=== PATIENT | male | born 1950 | race Caucasian/White ===

== ENCOUNTER 2018-01-06 10:34 | Emergency (ER) | payer OTHER ==
[~2018-01-06] VITALS: Ht 188 cm; Wt 104.3 kg
[~2018-01-06 10:34] MED LIST: ALLERGY RELIEF10 M5 PO; ASPIR 8181 M1 PO; CENTRUM SILVER1 EAC4 PO; IMDUR 30 MG TAB30 M1 PO; LOPRESSOR25 PO; MOBIC15 MG PO; NEURONTIN 300300 M1 PO; NICOTINE TRANSD21 M1 TRANSDERM; NITROGLYCERIN0.4 MG SUBLING; PAXIL10 MG PO; PLAVIX 75 MG TA75 M1 PO; REMERON15 MG PO; SENNA8.6 M1 PO; Synthroid 0.088 MG PO; TRAZODONE HCL50 MG PO; TUMS PO; TYLENOL325 MG PO; ZETIA10 MG PO
[2018-01-06] MEDS ORDERED: ZPAK PO (12:11)
[2018-01-06] MEDS ORDERED: MEDROLDOSEPACK PO (12:11)
[2018-01-06] MEDS ORDERED: TRAZODONE HCL100 MG PO (12:11)
[2018-01-06] MEDS ORDERED: PROAIR HFA8.5 GM INH (12:11)
[2018-01-06 12:34] VITALS: BP 139/73
== END 2018-01-06 12:34 | disposition home or self-care (01) ==
LOC: M.ERS 10:34
DX: J01.90 Acute sinusitis, unspecified (principal); G62.9 Polyneuropathy, unspecified; E78.00 Pure hypercholesterolemia, unspecified; E03.9 Hypothyroidism, unspecified; F17.200 Nicotine dependence, unspecified, uncomplicated

== ENCOUNTER 2018-04-13 02:58 | Inpatient (IN) | payer OTHER ==
[2018-04-13] VITALS (14 sets, daily range): BP systolic 103–138; BP diastolic 64–83
[~2018-04-13] VITALS: Ht 188 cm; Wt 97.8 kg
[~2018-04-13 02:58] MED LIST changes: +MEDROLDOSEPACK PO; +PROAIR HFA8.5 GM INH; +TRAZODONE HCL100 MG PO; +ZPAK PO
[2018-04-13 03:23] LABS: ABSOLUTE BASOPHILS 0.1 thou/uL (0.0-0.2); ABSOLUTE EOSINOPHILS 0.3 thou/uL (0.0-0.7); ABSOLUTE LYMPHOCYTES 2.6 thou/uL (0.8-5.3); ABSOLUTE MONOCYTES 0.6 thou/uL (0.0-1.2); BASOPHILS 0.7 %; EOSINOPHILS 3.1 %; HEMATOCRIT 38.9 % (42.0-52.0); HEMOGLOBIN 13.1 gm/dL (14.0-18.0); MCH 32.1 pg (26.0-34.0); MCHC 33.7 g/dL (28.0-37.0); MCV 95.2 fL (80.0-100.0); MONOCYTES 6.3 %; MPV 8.5 fl. (7.2-11.1); NUCLEATED RBCS 0 /100WBC; PLATELET COUNT* 331 thou/uL (150-400); POLYS 62.9 %; RBC 4.09 mil/uL (4.50-6.00); RDW-CV 13.1 % (10.5-14.5); WBC 9.5 thou/uL (4.0-11.0)
[2018-04-13 03:30] LABS: ANION GAP 5 mmol/L (7-16); BUN 9 mg/dL (7-18); CALCIUM 8.2 mg/dL (8.5-10.1); CHLORIDE 103 mmol/L (98-107); CO2 31 mmol/L (21-32); CREATININE 0.8 mg/dL (0.6-1.3); GLUCOSE 116 mg/dL (70-99); POTASSIUM 4.1 mmol/L (3.5-5.1); SODIUM 139 mmol/L (136-145)
[2018-04-13 03:34] LABS: APTT 28.4 Seconds (25.0-31.3)
[2018-04-13 03:40] LABS: ALBUMIN 2.8 g/dL (3.4-5.0); ALKALINE PHOSPHATASE 117 U/L (46-116); LIPASE 165 U/L (73-393); NT-PRO BRAIN NAT PEPTIDE 271 pg/mL (<300); SGOT 12 U/L (15-37); SGPT 15 U/L (30-65); TOTAL BILIRUBIN 0.1 mg/dL (<0.1-1.0); TOTAL PROTEIN 6.7 g/dL (6.4-8.2); TROPONIN-I LEVEL <0.06 ng/mL (<0.06)
[2018-04-13] MEDS ORDERED: LASIX 20 MG TAB20 MG PO (03:42)
[2018-04-13] MEDS ORDERED: PAXIL10 MG PO (03:44)
[2018-04-13] MEDS ORDERED: PRAVACHOL40 MG PO (03:45)
[2018-04-13] MEDS ORDERED: MELATONIN3 MG PO (03:47)
--- NOTE | 2018-04-13 04:01 | NUR ---
ASSUMMED CARE OF PATIENT FROM AMANDA DUQUE
--- NOTE | 2018-04-13 04:05 | NUR ---
ASSUMMED CARE OF PATIENT. PATIENT REPORTS CHEST DISCOMFORT IN MIDDLE OF CHEST THAT RADIATED INTO HIS NECK BEGAN 30 M PRIOR TO EMS PICKING UP PATIENT. PATIENT TOOK 3 NITRO AND CHEST PAIN RESOLVED. DENIES N/V MILD DYSPNEA DENIES DIAPHORESIS. PATIENT REMAINS PAIN FREE AT THIS TIME. ASA GIVEN BY EMS SHOP COORDINATOR MONITOR SHOWS SINUS KAIDEN NO ECTOPY NOTED.
--- NOTE | 2018-04-13 04:23 | NUR ---
ADMISSION ORDER PLACED ANTIQUE FINISHER NOTIFIED PATIENT INFORMED
[2018-04-13 05:01] LABS: BE 0.4 mmol/L (-2 to +3); HCO3 26.2 mmol/L (22.0-26.0); PCO2 46.9 mmHg (35.0-45.0); PO2 85.7 mmHg (75.0-100.0); pH 7.365 (7.340-7.450)
--- NOTE | 2018-04-13 05:58 | NUR ---
ADMITTED TO ICU BED 1, TELE OBSERVATION OVERFLOW. CURRENT CHEST PAIN 3/10 WHICH PT STATES IS IMPROVED FROM ER. DENIES SOA. VSS. IVF INITIATED ORDERED. PT ORIENTED TO ROOM, CALL LIGHT USE, AND FALL PREVENTION. FALL AGREEMENT SIGNED. CALL LIGHT WITHIN REACH.
--- NOTE | 2018-04-13 08:00 | NUR ---
RECEIVED REPORT FROM MANAGER FORMS NURSE. PATIENT AXOX4, RESTING AT THIS TIME, ASSESSMENT CHARTED. ALL VITALS WNL. CARDIOLOGY TO SEE PATIENT THIS AM. NPO FOR POSSIBLE CATH. NO CHEST PAIN, NAUSEA OR SHORTNESS OF AIR AT THIS TIME. GOALS ARE TO HAVE NO CHEST PAIN, VITALS WNL AND INCREASE ACTIVITY WITHOUT SHORTNESS OF BREATH OR CHEST PAIN. BED IN LOWEST POSITION, CALL LIGHT IN REACH, SENIOR PHYSICAL THERAPIST IN PLACE. WILL CONTINUE TO MONITOR.
--- NOTE | 2018-04-13 09:30 | NUR ---
PATIENT IN WEB SITE DESIGNER FOR CARIDAC CATH AND POSSIBLE STENT PLACEMENT.
--- NOTE | 2018-04-13 12:48 | EKG ---
[place] [address] ELECTROCARDIOGRAM REPORT Name: MONSTER FAROOQ [address] [id number] Admission: 04/13/18 Attend Phys: Irma Abraham MD Discharge: Date of : 52 Report #: [id number] THIS REPORT FOR: //name// 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1950 Requested By: Evelyne Moreno Order Number: [id number] MD: Jack Bullock Measurements Intervals [place] Rate: 57 P: 49 [place]: 178 QRS: 14 QRSD: 89 T: 47 QT: 446 QTc: 435 Interpretive Statements Sinus bradycardia nonspecific t wave changes Low voltage, extremity leads Compared to ECG 04/26/2015 09:18:37 Low QRS voltage now present st changes noted Electronically Signed On 04-13-2018 12:48:45 CDT by Jack Bullock [email or web address] <ELECTRONICALLY SIGNED> By: Jack Bullock MD, [facility] 04/13/18 1248 030 0302 Jack Bullock MD, [facility] /EPI
--- NOTE | 2018-04-13 13:00 | NUR ---
PATIENT BACK FROM CATH. 2 STENTS PLACED. PATIENT NOW ICU STATUS WITH SHEATH IN PLACE. DR DAN TO SEE PATIENT AROUND 1400. SHEATH TO REMAIN IN TILL 1400 AND THEN BED REST WITH RIGHT LEG STAIGHT FOR SIX HOURS POST SHEATH REMOVAL.
--- NOTE | 2018-04-13 14:08 | CON ---
[address] [address] CONSULTATION Name: MONSTER FAROOQ Room: [address] Matthew Toth#: [id number] Admission: 04/13/18 Attend Phys: Irma Abraham MD Discharge: Date of : 52 Report #: [id number] THIS REPORT FOR: //name// CC: KELECHI physician/PCP Irma Abraham DATE OF SERVICE: 04/13/2018 HISTORY OF PRESENT ILLNESS: The patient is a 68-year-old single white male who I was asked to see in the hospital today after he complained of chest pain. The patient has an extensive past medical history. Unfortunately, not all of his old records are available here at [place]. According to the patient, he had his first stent placed almost 17 years ago at [facility]. He had 2 stents placed at [facility] approximately 10 years ago. He was actually admitted here to [place] [address] segment elevation myocardial infarction. He was seen by my partner, Dr. Shah. He underwent a cardiac catheterization by Dr. Shah. The results showed LAD had a distal 80% stenosis. The diagonal branch was acutely occluded. The circumflex had a small intermediate ramus branch with an 80% ostial stenosis. The right coronary artery had a stent that is widely patent. The posterior descending branch appeared to have a 90% stenosis. The patient then underwent acute angioplasty, had a single bare metal stent placed. He was loaded with Plavix and discharged. The patient states he has done well since that time until the past couple of weeks. He has been having intermittent chest pressure. He awakened at 3:00 in the morning with a tightness in his chest, went into his throat, he became diaphoretic. He took 3 nitroglycerin and that seemed to help. He called the ambulance and brought here to [place]. I was asked to see him for further evaluation and treatment. He is not very active, but does note some exertional dyspnea. He has had no palpitations or syncope. PAST MEDICAL HISTORY: He has a history of a pituitary tumor. He has had 2 brain surgeries, one at [facility] and one in [place], one was transsphenoidal, the other was went through his upper lip. He has a history of seizures, hyperlipidemia, and depression. No history of hypertension or diabetes. CURRENT MEDICATIONS: Consists of Flonase, Lasix, Neurontin, Isordil, Synthroid, metoprolol, aspirin, Paxil, Dilantin, pravastatin, trazodone, albuterol inhaler, and aspirin. ALLERGIES: He has no known drug allergies. FAMILY HISTORY: Positive for heart disease. SOCIAL HISTORY: He is , lives in [place] with daughter. He is on disability secondary to previous brain surgery. 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 He smokes half pack of cigarettes a day[place] [address] CONSULTATION Name: MONSTER FAROOQ Room: [address] Matthew Toth#: [id number] Admission: 04/13/18 Attend Phys: Irma Abraham MD Discharge: Date of : 52 Report #: [id number] REVIEW OF SYSTEMS: He has sleep apnea, uses CPAP. No history of stroke. He does have COPD, uses inhaler. He has a chronic cough. No history of peptic ulcer disease, liver disease, kidney disease, or cancer. He does have a history of depression, sees a psychiatrist. No chronic skin condition. PHYSICAL EXAMINATION: GENERAL: Revealed a middle-aged male, who appeared in no acute distress. VITAL SIGNS: He had a blood pressure of 120/70, pulse 60. He was afebrile. HEENT: He was anicteric. Conjunctivae are pink. Mucous membranes are moist. NECK: Veins nondistended. No carotid bruits. CHEST: Revealed bilateral expiratory wheezes. HEART: Regular rate and rhythm, no murmur. ABDOMEN: Soft. EXTREMITIES: Had no edema. Dorsalis pedis pulse cannot be palpated. SKIN: Cool and dry. NEUROLOGIC: Nonfocal. LYMPH: No adenopathy. MUSCULOSKELETAL: No joint effusions. PSYCHIATRIC: Mood appeared somewhat depressed. His ECG showed a sinus rhythm with minimal ST segment depression in lead V2, V3, V4. His workup so far, he had portable chest x-ray that showed normal heart size, clear lung diaz. His lab work, sodium 139, BUN 9, creatinine 0.8. Liver function studies are normal. Troponin 0.06. Previous cholesterol is 241, triglyceride 296, HDL 35, LDL 147 in 2015, TSH is 0.722. White blood cell count 9.5, hemoglobin 13.1. IMPRESSION AND RECOMMENDATIONS: 1. Unstable angina. Recommend cardiac catheterization. 2. Hyperlipidemia. The patient is on a statin drug. 3. Tobacco abuse. 4. Chronic bronchitis. 5. Pituitary insufficiency following surgery. The patient is on hormone replacement therapy. 6. History of depression. 7. Sleep apnea. <ELECTRONICALLY SIGNED> By: Jack Bullock MD, [facility] 04/13/18 1408 0859 [id number] Pratima Bullock MD, FACC /nt
--- NOTE | 2018-04-13 14:27 | EKG ---
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1950 Requested By: Jack Bullock Order Number: [id number] Tarsha MD: Jack Bullock Measurements Intervals [place] Rate: 57 P: 56 [place]: 159 QRS: 19 QRSD: 99 T: 85 QT: 437 QTc: 426 Interpretive Statements Sinus bradycardia Inferior infarct, acute (RCA) Probable RV involvement, suggest recording right precordial leads Baseline wander in lead(s) II,III,aVF Compared to ECG 04/13/2018 03:02:21 Myocardial infarct finding now present Electronically Signed On 04-13-2018 14:27:36 CDT by Jack Bullock [email or web address] <ELECTRONICALLY SIGNED> By: Jack Bullock MD, [facility] 04/13/18 1427 1333 1333 Jack Bullock MD, [facility] /EPI
--- NOTE | 2018-04-13 14:59 | CARD ---
[address] [address] CARDIAC CATH REPORT Name: MONSTER FAROOQ Room: [address] Matthew Toth#: [id number] Admission: 04/13/18 Attend Phys: Irma Abraham MD Discharge: Date of : 52 Report #: [id number] THIS REPORT FOR: //name// APPROVED REPORT Study performed: 04/13/2018 09:20:26 Patient Details Patient Status: In-Patient Room #: ICU1 The patient is a 68 year-old male Event Personnel Jack Bullock Caustic Operator, Morena Sharp RN RN, Milka Thomas RN Monitor, Harjit Sesay (R) Kay Funk Jessica RTRojas Monitor Procedures Performed Art Access - R femoral artery* , PTCA with StentingLeft Heart Cath w/or w/o Coronaries LHC STEPHEN Place w/wo Plasty Addl BR PDA C DESADDL STEPHEN Place w/wo Plasty Single RCA Indication Abnormal ECG, Unstable angina , Chest pain Risk Factors Arterial Hypertension, Hypercholesterolemia, Coronary Artery Disease Previous Procedures/Diagnoses Previous PCI, Previous [place] Admission/Lab Medications/Medications given during procedure Glycoprotein IllbIlla Inhibitors, Platelet Aff. Inhib., Heparin Unfract. Procedure Narrative The patient was brought electively to the Cardiac Catheterization Laboratory and was prepped and aped in a sterile manner. The right femoral was infiltrated with 2% Lidocaine subcutaneous anesthesia. A 6fr Ultimum Sheath sheath was inserted into the right femoral artery. Coronary angiography was performed using coronary diagnostic catheters. The right coronary system was accessed and visualized with a 6JR 4 catheter. The left coronary system was accessed and visualized with a 6JL 4 catheter. The left [place] [address] CARDIAC CATH REPORT Name: MONSTER FAROOQ Room: [address]#: [id number] Admission: 04/13/18 Attend Phys: Irma Abraham MD Discharge: Date of : 52 Report #: [id number] visualized with a ANGLED PIGTAIL catheter. Left ventricular/Aortic Valve gradient assessed via catheter pullback. Left ventriculogram was performed in BASSETT projection. The patient tolerated the procedure well and there were no complications associated with the procedure. There was no hematoma. 6FR FEMORAL SHEATH SUTURED IN PLACE AND CONNECTED TO PRESSURE BAG FOR ARTERIAL LINE MONITORING. PAD required wire exchanges. Larry's test was abnormal so the radial artery was not used Intraoperative Conscious Sedation Sedation start time: 10:21 Case end Time: 11:49 Fentanyl 100 mcg Fluoro Time: 17.9 minutes Dose: DAP 121403 cGycm2 2807.03 mGy Contrast Type and Amount: Omnipaque 450 ml Diagnostic Cath Left Main 0% stenosis LAD 30% proximal and 60% mid stenosis Diagonal 1 stent had 0% stenosis Circumflex 0% stenosis Right Coronary long stent that started proximally and extended to mid rca and had diffuse restenosis with discrete mid 90% stenosis R PDA 90% mid stenosis noted Left Ventriculography The left ventricular ejection fraction is estimated to be 40-45%. Left ventricular wall motion abnormalities are present. There is no mitral insufficiency. severe hypokinesis noted of the distal anterolateral wall Hemodynamics The aortic pressure is 119/65 mmHg with a mean of 85 mmHg. The left ventricular pressure is 122/6 mmHg with a mean of mmHg. The left ventricular end diastolic pressure is 21 mmHg. There was no gradient across the aortic valve upon pullback. Pullback from the left ventricle to the aorta revealed no gradient across the aortic valve. PCI Technique Lesion Anticoagulation was achieved with Heparin. IV aggrastat bolus given Patient was preloaded with Plavix. Percutaneous coronary intervention was performed on the proximal right coronary artery. The lesion stenosis prior to intervention was 90% with CARROL [address] [place] [address] CARDIAC CATH REPORT Name: MONSTER FAROOQ Room: [address]#: [id number] Admission: 04/13/18 Attend Phys: Irma Abraham MD Discharge: Date of : 52 Report #: [id number] JR 4 6FR Guide Catheter was used to engage the RIGHT CORONARY ostium. A Whisper Wire 190CM Interventional Guidewire was used to cross the lesion. BALLOON DILATION A Balloon catheter Mini Trek RX 2.0 X 8 was inserted and inflated up to 18.00atm for 10seconds. Repeat angiography revealed the following post-dilatation results: 60% stenosis. Additional Inflation: 18.00atm for 9seconds. STENT DEPLOYMENT A drug-eluting stent Xience Alpine RX 3.0X33 was inserted and inflated up to 16.00atm for 19seconds. Repeat angiography revealed the following post-stent deployment results: 0% stenosis. Additional Inflation: 20.00atm for 14seconds. Final angiography reveals 0 % stenosis with CARROL 3 flow. COMMENTS Nirav wire required to advance stent into rca PCI Technique Lesion 2 Percutaneous Coronary Intervention was performed on the right posterior descending artery. Patient was preloaded with Plavix. Percutaneous coronary intervention was performed on the right posterior descending artery. The lesion stenosis prior to intervention was 90% with CARROL 3 flow. A Launcher JR 4 6FR Guide Catheter was used to engage the rca ostium. A Whisper Wire 190CM Interventional Guidewire was used to cross the lesion. Balloon Dilation A Balloon catheter Mini Trek RX 2.0 X 8 was inserted and inflated up to 10.00atm for 16seconds. Repeat angiography revealed the following post-dilatation results: distal vessel occluded. Additional Inflation: 12.00atm for 14seconds. Stent Deployment A drug-eluting stent Xience Alpine RX 2.25X12 was inserted and inflated up to 12.00atm for 14seconds. Repeat angiography revealed the following post-stent deployment results: distal vessel occluded. Additional Inflation: 14.00atm for 19seconds. Final angiography reveals 100 % stenosis with CARROL [address] [address] CARDIAC CATH REPORT Name: MONSTER FAROOQ Room: [address] Matthew M.R.#: [id number] Admission: 04/13/18 Attend Phys: Irma Abraham MD Discharge: Date of : 52 Report #: [id number] Comments Unable to easily wire the distal PDA branch. Distal vessel beyond stent noted to be occluded. Initial final picture demonstrated a perforation with contrast noted to flow into the left ventricle. The patient had minimal complaints at that time, and the heparin was reversed with 50 mg protamine. There was no decrease in blood pressure during the procedure. Final arteriogram showed no evidence of residual perforation. Conclusion 1. no restenosis noted of the stent in the diagonal branch of the LAD 2. 90% restenosis noted of the stent in the proximal RCA 3. 90% stenosis noted of the PDA branch of the RCA 4. successful placement of a drug eluting stent in the proximal RCA 5. placement of a drug eluting stent in the PDA branch of the distal RCA, although the vessel beyond the stent occluded Recommendations Smoking Cessation Cardiac Rehabilitation Referral Aggressive Medical Therapy Medications Administered Clopidogrel <ELECTRONICALLY SIGNED> By: Jack Bullock MD, [facility] 04/13/18 1459 1459 1459Dajulia Bullock MD, FACC /INF
--- NOTE | 2018-04-13 18:06 | NUR ---
PATIENT PROGRESSING WELL TOWARDS GOALS. 2 STENTS PLACED DURING HEART CATH TODAY. SHEATH REMOVED SUCCESSFULLY WITH MINIMAL BLEEDING. VITALS REMAIN WNL. PATIENT CAN BE OFF BEDREST AT 2000 TONIGHT AND TERRY MAY BE D/C AT THAT TIME. FAMILY HAS BEEN HERE TO VISIT THIS EVENING. PATIENT TOLERATING HEART HEALTHY DIET FOR DINNER. SHOULD BE ABLE TO D/C HOME TOMORROW. ALL QUESTION ANSWERED. DENIES ANY PAIN, NAUSEA OR SHORTNESS OF AIR. BED IN LOWEST POSTION, CALL LIGHT IN REACH, RN ANTE PARTUM IN PLACE. WILL CONTINUE TO MONITOR.
--- NOTE | 2018-04-13 19:58 | NUR ---
ASSUMED CARE OF PT FROM DAY ARTURO HERNANDEZ. PT A+O*4, WAS ON 2L O2 VIA NC, NOW RA, SAT 94%, DENIES ANY CP. PT IS S/P SHEATH REMOVAL AT 1400, RLE HAS REMAINED STRAIGHT, R GROIN SITE SOFT AND SUPPLE, NO HEMATOMA, NO BLEEDING AT SITE. TERRY TO BE D/C'D. DR DAN CALLED FOR DILANTIN ORDER PER PT REQUEST, 400MG AT HS.
[2018-04-13] MEDS ORDERED: DILANTIN50 MG PO (20:18)
[2018-04-14] VITALS (16 sets, daily range): BP systolic 104–125; BP diastolic 30–80
[2018-04-14 03:24] LABS: HEMATOCRIT 37.3 % (42.0-52.0); HEMOGLOBIN 12.6 gm/dL (14.0-18.0); MCH 31.7 pg (26.0-34.0); MCHC 33.6 g/dL (28.0-37.0); MCV 94.4 fL (80.0-100.0); MPV 8.7 fl. (7.2-11.1); RBC 3.96 mil/uL (4.50-6.00); RDW-CV 13.2 % (10.5-14.5); WBC 12.2 thou/uL (4.0-11.0)
[2018-04-14 03:43] LABS: CHOLESTEROL 222 mg/dL (<200); HDL CHOLESTEROL 34 mg/dL (>40); TC:HDL 6.5 Ratio (Not establshd)
[2018-04-14 04:35] LABS: LDL CHOLESTEROL 153 mg/dL (<100); TRIGLYCERIDE 175 mg/dL (<150); VLDL 35 mg/dL (<40)
[2018-04-14 04:42] LABS: SERUM ASSESSMENT CLEAR; TROPONIN-I LEVEL 12.31 ng/mL (<0.06)
--- NOTE | 2018-04-14 09:50 | NUR ---
0730 ASSUMED CARE OF PATIENT. PLEASE SEE DOCUMENTED ASSESSMENT AND GROIN SITE CHARTING. PT DENIES CHEST PAIN.
--- NOTE | 2018-04-14 09:51 | NUR ---
VENOUS DOPPLERS DONE. PATIENT IS NOW TELE STATUS
--- NOTE | 2018-04-14 10:25 | NUR ---
INTERDISCIPLINARY ROUNDS: MET WITH PT. IS S/P NSTEMI AND CATH. HE HOPES TO MOVE TO THE FLOOR FROM ICU TODAY SO HE CAN 'REST.' PT LIVES WITH DTR WHO IS ALSO DISABLED. THEY ARE BOTH FAIRLY INDEPENDENT. PT USES CPAP. [facility]. PT DENIES ANY DC NEEDS AT THIS TIME. DTR CAN ASSIST WITH NEEDS AT HOME AND TRANSPORATION. CM TO FOLLOW
--- NOTE | 2018-04-14 11:08 | EKG ---
[place] [address] ELECTROCARDIOGRAM REPORT Name: MONSTER FAROOQ Room: [address] ADM IN M.R.#: [id number] Admission: 04/14/18 Attend Phys: Saranya Haines Discharge: Date of : 52 Report #: [id number] THIS REPORT FOR: //name// 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1950 Requested By: Jack Bullock Order Number: [id number] Reading MD: Steve Alcocer Measurements Intervals [place] Rate: 67 P: 56 ND: 172 QRS: -16 QRSD: 103 T: 50 QT: 407 QTc: 430 Interpretive Statements Sinus rhythm Consider left atrial enlargement Borderline left axis deviation Low voltage, extremity leads Abnormal R-wave progression, early transition Baseline wander in lead(s) II,III,aVF Compared to ECG 04/13/2018 13:33:20 Low QRS voltage now present Sinus bradycardia no longer present Myocardial infarct finding no longer present Electronically Signed On 04-14-2018 11:08:10 CDT by Steve Alcocer [email or web address] <ELECTRONICALLY SIGNED> By: Steve Alcocer MD, [facility] 04/14/18 1108 8 8 Steve Alcocer MD, [facility] /EPI
--- NOTE | 2018-04-14 14:01 | NUR ---
CARDIAC REHAB TO WORK WITH PATIENT.
--- NOTE | 2018-04-14 15:26 | NUR ---
TRANSFERRED PER WHEELCHAIR TO Replaced by [facility] WITH ALL RECORDS AND BELONGINGS. REPORT TO ARTURO CLINE
--- NOTE | 2018-04-14 15:30 | NUR ---
ICU TX TO RM 229 PATIENT ORIENTED TO CALL LIGHT AND RM DENIES PAIN
[2018-04-15] VITALS: BP 114/73
--- NOTE | 2018-04-15 03:16 | NUR ---
PATIENT RESTED IN BED, NO ACUTE CHANGES. PATIENT DID NOT SHOW SIGNS OF DISTRESS. FALL PRECAUTIONS IN PLACE, CALL LIGHT WITH IN REACH.
[2018-04-15 04:00] VITALS: BP 112/55
--- NOTE | 2018-04-15 07:20 | NUR ---
CHANGE OF SHIFT BEDSIDE REPORT GIVEN PATIENT SEEN IN ROOM UP SITTING IN CHAIR ASSUMED PATIENT CARE
[2018-04-15 12:06] VITALS: BP 115/62
[2018-04-15] MEDS ORDERED: TOPROL XL25 MG PO (14:04)
[2018-04-15] MEDS ORDERED: PLAVIX 75 MG TA75 M1 PO (14:12)
--- NOTE | 2018-04-15 15:00 | NUR ---
PATIENT DCD TO HOME ALL DC INSTRUCTIONS INFORMED, ACKNOWLEDGED, AND SIGNED COPIES GIVEN IV AND HEART MONITOR REMOVED PERSONAL BELONGINGS RETURNED ASSISTED OUT VIA WC GOOD CONDITION TO WAITING CAR
== END 2018-04-15 14:55 | disposition home or self-care (01) | DRG 246 ==
LOC: M.ERS 02:58 → M.TBA-ER 04:19 → M.ICU 04:19 → M.2W 04-14 08:18
PROVIDERS: Internal Medicine Cardiovascular Disease; Personal Emergency Response Attendant; ADMIT Internal Medicine
PROC: 027035Z Dilation of Coronary Artery, One Artery with Two Drug-eluting Intraluminal Devices, Percutaneous Approach (ICD-10-PCS; principal; 2018-04-13)
PROC: 4A023N7 Measurement of Cardiac Sampling and Pressure, Left Heart, Percutaneous Approach (ICD-10-PCS; principal; 2018-04-13)
PROC: B2151ZZ Fluoroscopy of Left Heart using Low Osmolar Contrast (ICD-10-PCS; principal; 2018-04-13)
PROC: B2111ZZ Fluoroscopy of Multiple Coronary Arteries using Low Osmolar Contrast (ICD-10-PCS; principal; 2018-04-13)
DX: T82.855A Stenosis of coronary artery stent, initial encounter (principal); I21.4 Non-ST elevation (NSTEMI) myocardial infarction; E23.0 Hypopituitarism; I25.110 Atherosclerotic heart disease of native coronary artery with unstable angina pectoris; E78.5 Hyperlipidemia, unspecified; E78.00 Pure hypercholesterolemia, unspecified; F32.9 Major depressive disorder, single episode, unspecified; I25.2 Old myocardial infarction; R56.9 Unspecified convulsions; E03.9 Hypothyroidism, unspecified; F17.210 Nicotine dependence, cigarettes, uncomplicated; G47.30 Sleep apnea, unspecified; G62.9 Polyneuropathy, unspecified; J44.9 Chronic obstructive pulmonary disease, unspecified; K63.5 Polyp of colon; Y83.8 Other surgical procedures as the cause of abnormal reaction of the patient, or of later complication, without mention of misadventure at the time of the procedure; Y92.89 Other specified places as the place of occurrence of the external cause; Z79.82 Long term (current) use of aspirin; Z95.5 Presence of coronary angioplasty implant and graft; Z79.899 Other long term (current) drug therapy; Z82.49 Family history of ischemic heart disease and other diseases of the circulatory system

== ENCOUNTER 2018-04-19 02:29 | Inpatient (IN) | payer OTHER ==
[~2018-04-19] VITALS: Ht 188 cm; Wt 101.2 kg
[2018-04-19] VITALS (17 sets, daily range): BP systolic 99–122; BP diastolic 56–74
--- NOTE | ~2018-04-19 | EKG ---
[place] [address] ELECTROCARDIOGRAM REPORT Name: MONSTER FAROOQ Room: [address] ADM IN .R.#: [id number] Admission: 04/19/18 Attend Phys: Jack Bullock MD, F Discharge: Date of : 51 Report #: [id number] THIS REPORT FOR: //name// 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: [facility] : 1950 Requested By: Prasanna Nath Order Number: [id number] MD: Measurements Intervals [place] Rate: 61 P: 52 [place]: 158 QRS: -33 QRSD: 102 T: 84 QT: 396 QTc: 399 Interpretive Statements Sinus rhythm Multiform ventricular premature complexes Inferior infarct, acute (RCA) Probable RV involvement, suggest recording right precordial leads Baseline wander in lead(s) II,III,aVF Compared to ECG 04/14/2018 08:19:03 Ventricular premature complex(es) now present Myocardial infarct finding now present [email or web address] By: 8 8 Epiphany Epiphany, /TY
[~2018-04-19 02:29] MED LIST changes: +DILANTIN50 MG PO; +LASIX 20 MG TAB20 MG PO; +MELATONIN3 MG PO; +PRAVACHOL40 MG PO; +TOPROL XL25 MG PO
[2018-04-19 02:52] LABS: ABSOLUTE BASOPHILS 0.2 thou/uL (0.0-0.2); ABSOLUTE EOSINOPHILS 0.2 thou/uL (0.0-0.7); ABSOLUTE LYMPHOCYTES 2.4 thou/uL (0.8-5.3); ABSOLUTE MONOCYTES 1.1 thou/uL (0.0-1.2); ABSOLUTE NEUTROPHILS 8.1 thou/uL (1.6-8.1); BASOPHILS 1.4 %; HEMATOCRIT 37.1 % (42.0-52.0); HEMOGLOBIN 12.5 gm/dL (14.0-18.0); LYMPHOCYTES 19.8 %; MCH 32.2 pg (26.0-34.0); MCHC 33.6 g/dL (28.0-37.0); MCV 95.9 fL (80.0-100.0); MONOCYTES 9.4 %; MPV 8.8 fl. (7.2-11.1); NUCLEATED RBCS 0 /100WBC; PLATELET COUNT* 380 thou/uL (150-400); POLYS 67.4 %; RBC 3.87 mil/uL (4.50-6.00); RDW-CV 12.5 % (10.5-14.5)
[2018-04-19 03:05] LABS: APTT 28.3 Seconds (25.0-31.3); CREATININE 0.7 mg/dL (0.6-1.3); POTASSIUM 3.7 mmol/L (3.5-5.1); PROTIME 10.1 Seconds (9.20-11.50)
[2018-04-19] MEDS ORDERED: FLONASE 0.05%50 MCG NASAL (03:14)
[2018-04-19] MEDS ORDERED: HYDROXYZINE HCL10 M1 PO (03:15)
[2018-04-19] MEDS ORDERED: IMDUR 30 MG TAB30 M1 PO (03:16)
[2018-04-19 03:24] LABS: ALBUMIN 2.7 g/dL (3.4-5.0); CK-MB MASS 1.3 ng/mL (<0.5-3.6); MAGNESIUM 1.9 mg/dL (1.8-2.4); TOTAL BILIRUBIN 0.2 mg/dL (<0.1-1.0); TOTAL PROTEIN 6.7 g/dL (6.4-8.2)
[2018-04-19 03:31] LABS: TROPONIN-I LEVEL 1.81 ng/mL (<0.06)
[2018-04-19 05:13] LABS: CHOLESTEROL 180 mg/dL (<200); HDL CHOLESTEROL 33 mg/dL (>40); LDL CHOLESTEROL 115 mg/dL (<100); TC:HDL 5.5 Ratio (Not establshd); TRIGLYCERIDE 163 mg/dL (<150); VLDL 33 mg/dL (<40)
[2018-04-19 05:17] LABS: SERUM ASSESSMENT Clear
--- NOTE | 2018-04-19 13:06 | CARD ---
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 Procedure Narrative The patient was brought emergently to the Cardiac Catheterization Laboratory and was prepped and draped in a sterile manner. The left femoral was infiltrated with 2% Lidocaine subcutaneous anesthesia. A 6 fr sheath was inserted into the left femoral artery. Coronary angiography was performed using coronary diagnostic catheters. The right coronary system was accessed and visualized with a 6 fr jr4 guide catheter. The left coronary system was accessed and visualized with a Diagnostic catheter. Left ventricular/Aortic Valve gradient assessed via catheter pullback. [place] [address] CARDIAC CATH REPORT Name: MONSTER FAROOQ Room: [address]#: [id number] Admission: 04/19/18 Attend Phys: Jack Bullock MD, F Discharge: Date of : 52 Report #: [id number] well and there were no complications associated with the procedure. There was no hematoma. Sheath suture in place at end of procedure Intraoperative Conscious Sedation no sedation given Fluoro Time: 10.7 minutes Dose: 1574 mGy Contrast Type and Amount: Visipaque 230 ml Coronary Angiography The patient's coronary anatomy is right dominant. Diagnostic Cath Left Main 0% stenosis LAD 40% ostial stenosis and 70% distal stenosis Diagonal 1 stent with 0% stenosis Circumflex 0% stenosis Right Coronary long stent that was acutely occluded at its proximal end R PDA stent that appeared chronicall occluded RPLV 60% mid stenosis Left Ventriculography Left Ventriculography was not performed. IVUS Anticoagulation was achieved with . Heparin Hemodynamics The aortic pressure is 101/61 mmHg with a mean of 78 mmHg. The left ventricular pressure is 113/8 mmHg with a mean of mmHg. The left ventricular end diastolic pressure is 20 mmHg. There was no gradient across the aortic valve upon pullback. Pullback from the left ventricle to the aorta revealed no gradient across the aortic valve. PCI Technique Lesion Anticoagulation was achieved with Heparin. iv aggrastat given Percutaneous coronary intervention was performed on the proximal right coronary artery. The lesion stenosis prior to intervention was 100% with CARROL 0 flow. A 6F JR 4.0 Guide Catheter was used to engage the rca ostium. A [facility] Interventional Guidewire was [place] [address] CARDIAC CATH REPORT Name: MONSTER FAROOQ Room: [address] IN [facility]#: [id number] Admission: 04/19/18 Attend Phys: Jack Bullock MD, F Discharge: Date of : 52 Report #: [id number] BALLOON DILATION A Balloon catheter Trek RX 2.5 X 12 was inserted and inflated up to 20.00atm for 11seconds. Repeat angiography revealed the following post-dilatation results: 70% stenosis with clot and possible dissection. STENT DEPLOYMENT A drug-eluting stent 3.5 x 33 mm Xience Alpine RX 3.5X12 was inserted and inflated up to 20atm for 23seconds. Repeat angiography revealed the following post-stent deployment results: possible dissection distal to stent. Additional Inflation: 18.00atm for 29seconds. Additional Inflation: 18.00atm for 12seconds. 2nd BMW kriss wire required to advance stent to area of stenosis because of length of stent and tortuosity. Arteriogram showed possible dissction in distal portion of old stent, and at acute margin of vessel. Second stent which was 3.5 x 15 mm drug eluting stent placed so that there was minimal overlap between second stent and more proximal first stent. Arteriogram showed residual stenosis just beyond second stent. 3rd drug eluting stent which was a 3.5 x 12 mm drug eluting stent placed just beyond second stent. 3.5 mm stent balloon used to dilate the entire length of stented segment at end of procedure. Final angiography reveals 0 % stenosis with CARROL 3 flow. PCI Technique Lesion Anticoagulation was achieved with Heparin. STENT DEPLOYMENT A drug-eluting stent Xience Alpine RX 3.5X33 was inserted and inflated up to 16atm for 20seconds. Additional Inflation: 20atm for 8seconds. Additional Inflation: 20atm for 11seconds. additional Inflation: 20 megha for 10 sec. PCI Technique Lesion 2 Percutaneous Coronary Intervention was performed on the mid right coronary artery. Conclusion 1. acute occlusion of a stent in the proximal rca 2. chronic occlusion of a stent in the posterior descending branch of the rca 3. successful placement of 3 drug eluting stents in the proximal and mid rca 4. possible subacute stent thrombosis secondary to use of [place] [address] CARDIAC CATH REPORT Name: MONSTER FAROOQ Room: [address] IN [facility]#: [id number] Admission: 04/19/18 Attend Phys: Jack Bullock MD, F Discharge: Date of : 52 Report #: [id number] Recommendations Smoking Cessation Cardiac Rehabilitation Referral Aggressive Medical Therapy Medications Administered Ticagrelor <ELECTRONICALLY SIGNED> By: Jack Bullock MD, FACC 04/19/18 1306 1306 1306Dajulia Bullock MD, FAC /INF
--- NOTE | 2018-04-19 20:27 | H ---
[address] [address] HISTORY AND PHYSICAL Name: MONSTER FAROOQ Oniel Room: [address] IN .R.#: [id number] Admission: 04/19/18 Attend Phys: Jack Bullock MD, F Discharge: Date of : 51 Report #: [id number] THIS REPORT FOR: //name// CC: Jack Bullock [facility] physician/PCP DATE OF SERVICE: 04/19/2018 HISTORY OF PRESENT ILLNESS: The patient is a 68-year-old single white male who came to the Emergency Room, complaining of chest pain. The patient had a coronary stent placed almost 17 years ago at [facility]. He had 2 stents placed at [place] approximately 10 years ago. He was actually admitted to [place] in [address] segment elevation myocardial infarction. Heart catheterization showed 80% stenosis of the distal LAD. The diagonal artery was acutely occluded. The circumflex had a small ramus intermediate branch with an 80% ostial stenosis. The right coronary stent was widely patent. The posterior descending branch had a 90% stenosis. He underwent acute angioplasty and a single bare metal stent placed in the diagonal artery. He was loaded with Plavix and discharged. He then did well until about a month ago. He began to have intermittent chest pressure. He awakened at 3:00 in the morning with a tightness in his chest and in his throat, became diaphoretic. He took 3 nitroglycerins that seemed to help. He called EMS, was brought to [place]. I saw him in consultation and felt he was having unstable angina. I performed repeat cardiac catheterization from the right femoral artery after he failed his Larry's test. Results showed severe hypokinesis distal anterolateral wall with an ejection fraction of 40%-45%. The LAD had a 60% mid stenosis. The diagonal stent had no restenosis. There appeared to be no significant disease in the circumflex. The right coronary artery had a long stent that started proximally, stented to the mid right coronary artery with diffuse restenosis and a discrete 90% stenosis in the posterior descending branch. I then attempted angioplasty with heparin and Aggrastat. There was difficulty wiring the posterior descending branch. I did place a long drug-eluting stent in the right coronary artery with no significant residual stenosis. It did require kriss wire. I then attempted stenting the posterior descending branch. I was able to place a stent there; however, on contrast injection, there appeared to be contrast going into the left ventricle consistent with a perforation. Fortunately, he tolerated this well. The heparin was reversed with protamine and repeat angiogram showed the stent in the proximal right coronary artery was patent, although the posterior descending branch was occluded. The patient was transferred to the intensive care unit and the sheath was removed later that day. He did have elevation of troponin. However, he had no further chest pain, shortness of breath or arrhythmias. Additional workup during that hospitalization included a lower extremity Doppler study that showed no significant arterial occlusive disease. He was discharged, actually did well after his discharge, taking Plavix 75 mg a day. However, on the evening of admission, about 1:30 in the morning, he began to have chest [place]. [place] [address] HISTORY AND PHYSICAL Name: MONSTER FAROOQ Room: [address] IN M.R.#: [id number] Admission: 04/19/18 Attend Phys: Jack Bullock MD, F Discharge: Date of : 51 Report #: [id number] his blood sugar was low and he thought he had a hypoglycemic episode. However, the pain went to his arm, he became short of breath, nausea, diaphoretic. EMS was called. He was brought here to [place]. He was found to have evidence of inferior STEMI and a code STEMI was activated. He denied any bleeding or fever since his discharge. PAST MEDICAL HISTORY: Significant for removal of a pituitary tumor. He has a history of seizures, hyperlipidemia, depression. No history of hypertension. He does have glucose intolerance. MEDICATIONS: Include Flonase, Neurontin, Synthroid, metoprolol, aspirin, Paxil, Dilantin, pravastatin, trazodone, albuterol inhaler, aspirin and Plavix. ALLERGIES: No known drug allergies. FAMILY HISTORY: Positive for heart disease. SOCIAL HISTORY: He is , lives in [place] with his daughter. He is on disability due to previous brain surgery. 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 He was smoking half pack of cigarettes a day. No alcohol abuse. REVIEW OF SYSTEMS: He has sleep apnea, uses CPAP. No history of stroke. He does have COPD. He has a chronic cough. No history of peptic ulcer disease, liver disease, kidney disease or cancer. He has a history of depression, sees a psychiatrist. No chronic skin condition. PHYSICAL EXAMINATION: GENERAL: Revealed a middle-aged male, in mild distress. VITAL SIGNS: His blood pressure was 110/60, pulse is 70, he was afebrile. HEENT: He is anicteric. Conjunctivae pink. Mucous membranes moist. NECK: Veins nondistended. No carotid bruits. CHEST: Expiratory wheezes. HEART: Regular rate and rhythm. ABDOMEN: Soft. EXTREMITIES: Had no edema. Dorsalis pedis pulse cannot be palpated. SKIN: Cool and dry. NEUROLOGIC: Nonfocal. DIAGNOSTIC DATA: ECG, sinus rhythm; ST segment elevation in II, III, aVF; reciprocal ST segment depression V2, V3. His workup in the Emergency Room, he did have a chest x-ray that was pending. LABORATORY DATA: Sodium 138, BUN 8, creatinine 0.7, glucose is 130. His liver function studies were normal. Troponin 1.81 which is down from 12 at the time of his discharge, a week ago. His white blood cell count was 12.0, hemoglobin 12[place] [address] HISTORY AND PHYSICAL Name: MONSTER FAROOQ Room: [address] IN [facility]#: [id number] Admission: 04/19/18 Attend Phys: Jack Bullock MD, F Discharge: Date of : 52 Report #: [id number] IMPRESSION AND RECOMMENDATIONS: 1. Acute inferior ST segment elevation myocardial infarction. Possible Plavix nonresponder. Recommend repeat cardiac catheterization. 2. Glucose intolerance. 3. Hyperlipidemia. The patient is on a statin drug. 4. Tobacco abuse. 5. Chronic bronchitis. 6. Pituitary insufficiency following surgery. 7. History of depression. 8. Sleep apnea. <ELECTRONICALLY SIGNED> By: Jack Bullock MD, [facility] 04/19/187 0434 0533David Pratima Bullock MD, FACC /nt
[2018-04-20] VITALS (9 sets, daily range): BP systolic 90–125; BP diastolic 51–72
[2018-04-20 05:08] LABS: HEMATOCRIT 35.5 % (42.0-52.0); HEMOGLOBIN 11.7 gm/dL (14.0-18.0); MCH 31.5 pg (26.0-34.0); MCHC 32.9 g/dL (28.0-37.0); MCV 95.8 fL (80.0-100.0); MPV 9.2 fl. (7.2-11.1); RBC 3.71 mil/uL (4.50-6.00); RDW-CV 12.8 % (10.5-14.5); WBC 11.6 thou/uL (4.0-11.0)
--- NOTE | 2018-04-20 13:33 | EKG ---
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: : 1950 Requested By: Prasanna Nath Order Number: [id number] MD: Bon Shah Measurements Intervals [place] Rate: 60 P: 49 WI: 183 QRS: 41 QRSD: 113 T: 97 QT: 448 QTc: 448 Interpretive Statements Sinus rhythm Inferior infarct, acute (RCA) Probable RV involvement, suggest recording right precordial leads Compared to ECG 04/14/2018 08:19:03 Myocardial infarct finding now present Electronically Signed On 04-20-2018 13:33:24 CDT by Bon Shah [email or web address] <ELECTRONICALLY SIGNED> By: Bon Shah MD, FACC 04/20/18 1333 0240 0240 Bon Shah MD, [facility] /EPI
--- NOTE | 2018-04-20 13:34 | EKG ---
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: [facility] : 1950 Requested By: Jack Bullock Order Number: [id number] Tarsha MD: Bon Shah Measurements Intervals [place] Rate: 61 P: 52 [place]: 158 QRS: -33 QRSD: 102 T: 84 QT: 396 QTc: 399 Interpretive Statements Sinus rhythm Multiform ventricular premature complexes Inferior infarct, acute (RCA) Probable RV involvement, suggest recording right precordial leads Baseline wander in lead(s) II,III,aVF Compared to ECG 04/14/2018 08:19:03 Ventricular premature complex(es) now present Myocardial infarct finding now present Electronically Signed On 04-20-2018 13:34:16 CDT by Bon Shah [email or web address] <ELECTRONICALLY SIGNED> By: Bon Shah MD, FAC 04/20/18 1334 8 8 Bon Shah MD, [facility] /EPI
--- NOTE | 2018-04-20 13:36 | EKG ---
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: [facility] : 1950 Requested By: Bon Shah Order Number: [id number] Tarsha MD: Bon Shah Measurements Intervals [place] Rate: 67 P: 66 NM: 175 QRS: -32 QRSD: 100 T: 79 QT: 404 QTc: 427 Interpretive Statements Sinus rhythm Probable inferior infarct, acute Compared to ECG 04/14/2018 08:19:03 Myocardial infarct finding now present Electronically Signed On 04-20-2018 13:36:27 CDT by Bon Shah [email or web address] <ELECTRONICALLY SIGNED> By: Bon Shah MD, [facility] 04/20/18 1336 1614 161 Bon Shah MD, [facility] /EPI
--- NOTE | 2018-04-20 13:41 | EKG ---
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: [facility] : 1950 Requested By: Jack Bullock Order Number: [id number] Tarsha MD: Bon Shah Measurements Intervals [place] Rate: 65 P: 66 [place]: 164 QRS: -37 QRSD: 105 T: 69 QT: 433 QTc: 451 Interpretive Statements Sinus rhythm Probable inferior infarct, recent Compared to ECG 04/14/2018 08:19:03 Myocardial infarct finding now present Electronically Signed On 04-20-2018 13:40:49 CDT by Bon Shah [email or web address] <ELECTRONICALLY SIGNED> By: Bon Shah MD, [facility] 04/20/18 1340 38 38 Bon Shah MD, [facility] /EPI
--- NOTE | 2018-04-20 16:25 | 2DMMODE ---
[place] [address] 2 D/M-MODE ECHOCARDIOGRAM Name: MONSTER FAROOQ Oniel Room: [address] ADM IN [facility]#: [id number] Admission: 04/19/18 Attend Phys: Jack Bullock MD Discharge: Date of : 52 Date of Service: 04/20/18 1625 Report #: [id number] THIS REPORT FOR: //name// APPROVED REPORT Study performed: 04/20/2018 13:41:14 EXAM: Comprehensive 2D, Doppler, and color-flow Echocardiogram Patient Location: In-Patient Room #: 003 Status: routine BSA: 2.28 HR: 74 bpm BP: 109/54 mmHg Rhythm: NSR Other Information Study Quality: Good Indications Acute NE CAD 2D Dimensions LVEF(%): 67.68 (>50%) IVSd: 14.33 (7-11mm) LVOT Diam: 20.86 (18-24mm) LVDd: 41.95 mm PWd: 11.42 (7-11mm) Ascending Ao: 34.49 (22-36mm) LVDs: 26.31 (25-40mm) Aortic Root: 34.42 mm Cuevas's LVEF: 67.68 % Volumes Left Atrial Volume (Systole) LA ESV Index: 25.10 mL/m2 Aortic Valve AoV Peak Shantanu.: 1.53 m/s AO Peak Gr.: 9.34 mmHg LVOT Max P.62 mmHg AO Mean Gr.: 4.62 mmHg LVOT Mean P.54 mmHg LVOT Max V: 1.19 m/s AO V2 VTI: 25.38 cm LVOT Mean V: 0.73 m/s KETURAH (VTI): 2.74 cm2 LVOT V1 VTI: 20.34 [place] [address] 2 D/M-MODE ECHOCARDIOGRAM Name: MONSTER FAROOQ Room: [address] IN .R.#: [id number] Admission: 04/19/18 Attend Phys: Jack Bullock MD Discharge: Date of : 52 Date of Service: 04/20/18 1625 Report #: [id number] E/A Ratio: 0.85 MV Decel. Time: 253.26 ms MV E Max Shantanu.: 0.59 m/s MV PHT: 73.45 ms MVA (PHT): 3.00 cm2 TDI E/Lateral E': 7.38 E/Medial E': 7.38 Medial E' Shantanu.: 0.08 m/s Lateral E' Shantanu.: 0.08 m/s Pulmonary Valve PV Peak Shantanu.: 0.97 m/s PV Peak Gr.: 3.73 mmHg Left Ventricle The left ventricle is normal size. There is normal LV segmental wall motion. Mild concentric left ventricular hypertrophy. Left ventricular systolic function is normal. The left ventricular ejection fraction is within the normal range. LVEF is 55-60%. Grade I - abnormal relaxation pattern. Right Ventricle The right ventricle is normal size. The right ventricular systolic function is normal. Atria The left atrium size is normal. The right atrium size is normal. Aortic Valve Moderate aortic valve sclerosis. No aortic regurgitation is present. There is no aortic valvular stenosis. Mitral Valve The mitral valve is normal in structure. Trace mitral regurgitation. No evidence of mitral valve stenosis. Tricuspid Valve The tricuspid valve is normal in structure. Unable to assess PA pressure. Trace tricuspid regurgitation. Pulmonic Valve The pulmonary valve is normal in structure. There is no pulmonic [place]vular [place] [address] 2 D/M-MODE ECHOCARDIOGRAM Name: MONSTER FAROOQ Room: [address] IN [facility]#: [id number] Admission: 04/19/18 Attend Phys: Jack Bullock MD Discharge: Date of : 52 Date of Service: 04/20/18 1625 Report #: [id number] The aortic root is normal in size. IVC is normal in size and collapses with >50% inspiration Pericardium There is no pericardial effusion. <Conclusion> The left ventricle is normal size. Left ventricular systolic function is normal. The left ventricular ejection fraction is within the normal range. LVEF is 55-60%. Grade I - abnormal relaxation pattern. The right ventricle is normal size. The left atrium size is normal. Moderate aortic valve sclerosis. No aortic regurgitation is present. There is no aortic valvular stenosis. The mitral valve is normal in structure. Trace mitral regurgitation. The tricuspid valve is normal in structure. IVC is normal in size and collapses with >50% inspiration There is normal LV segmental wall motion. Mild concentric left ventricular hypertrophy. <ELECTRONICALLY SIGNED> By: Alex Kim MD, FACC 04/20/18 1625 1625 1625 Alex Kim MD, FACC /INF
[2018-04-21] VITALS: BP 115/61
[2018-04-21 04:00] VITALS: BP 95/51
[2018-04-21 08:00] VITALS: BP 100/63
[2018-04-21 08:05] VITALS: BP 95/56
[2018-04-21 08:43] VITALS: BP 100/63
[2018-04-21] MEDS ORDERED: BRILINTA90 MG PO (08:43)
== END 2018-04-21 14:10 | disposition home or self-care (01) | DRG 246 ==
LOC: M.CL 02:29 → M.ERS 02:29 → M.CL 03:16 → M.ICU 04:39 → M.TBA-ER 04:39 → M.ICU 05:04 → M.2W 04-20 16:42
PROVIDERS: Family Medicine; ADMIT Internal Medicine Cardiovascular Disease
PROC: B211YZZ Fluoroscopy of Multiple Coronary Arteries using Other Contrast (ICD-10-PCS; principal; 2018-04-19)
PROC: 027036Z Dilation of Coronary Artery, One Artery with Three Drug-eluting Intraluminal Devices, Percutaneous Approach (ICD-10-PCS; principal; 2018-04-19)
PROC: 4A023N7 Measurement of Cardiac Sampling and Pressure, Left Heart, Percutaneous Approach (ICD-10-PCS; principal; 2018-04-19)
DX: T82.855A Stenosis of coronary artery stent, initial encounter (principal); I21.19 ST elevation (STEMI) myocardial infarction involving other coronary artery of inferior wall; I50.33 Acute on chronic diastolic (congestive) heart failure; I11.0 Hypertensive heart disease with heart failure; Y83.8 Other surgical procedures as the cause of abnormal reaction of the patient, or of later complication, without mention of misadventure at the time of the procedure; Y92.89 Other specified places as the place of occurrence of the external cause; E03.9 Hypothyroidism, unspecified; E78.00 Pure hypercholesterolemia, unspecified; G62.9 Polyneuropathy, unspecified; E78.5 Hyperlipidemia, unspecified; F32.9 Major depressive disorder, single episode, unspecified; E74.39 Other disorders of intestinal carbohydrate absorption; J42 Unspecified chronic bronchitis; F17.210 Nicotine dependence, cigarettes, uncomplicated; Z86.010 Personal history of colon polyps; Z82.49 Family history of ischemic heart disease and other diseases of the circulatory system; Z79.899 Other long term (current) drug therapy